=== PATIENT | male | born 1985 | race Two or more races ===

== ENCOUNTER 2025-02-22 14:31 | Emergency (ER) | payer SELFPAY ==
--- NOTE | 2025-02-22 14:33 | EKG_ITS ---
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
[2025-02-22 14:57] VITALS: BP 128/80; PULSE 64; RESP 16; TEMP 37.1; O2SAT 97; BMI 36.9
--- NOTE | 2025-02-22 15:22 | XR_ITS ---
Examination: PA lateral chest 2 views Technique one AP lateral chest 2 views Date and time: February 22, 2025 1532 hours INDICATIONS: Chest pain today. FINDINGS: Normal heart size. Lungs are clear. The osseous structures are intact. IMPRESSION: No active disease
--- NOTE | 2025-02-22 15:22 | PD.EDRME ---
Rapid Medical Screening Exam RME Arrival date/time: 02/22/25 14:31 39-year-old male presents Emergency Department for complaint of chest pain Chief Complaint: Chest Pain Vital signs: Vital Signs Temperature 98.7 F 02/22/25 14:57 Pulse Rate 64 02/22/25 14:57 Respiratory Rate 16 02/22/25 14:57 Blood Pressure 128/80 02/22/25 14:57 Pulse Oximetry (%) 97 02/22/25 14:57 Oxygen Delivery Method Room Air 02/22/25 14:57
[2025-02-22 15:35] LABS: Basophils # (Auto) 0.1 Thou/mm3 (0.0-0.2); Basophils % (Auto) 2 % (0-2.5); Eosinophils # (Auto) 0.1 Thou/mm3 (0.0-0.5); Eosinophils % (Auto) 2 % (0-10); Hematocrit 49.0 % (41.0-53.0); Hemoglobin 17.3 g/dL (13.5-16.0); Immature Granulocytes Auto 0.01 Thou/mm3 (0.00-0.00); Lymphocytes # (Auto) 1.3 Thou/mm3 (1.0-4.8); Lymphocytes % (Auto) 25 % (10-50); Mean Corpuscular HGB Conc 35.3 g/dl (31.0-37.0); Mean Corpuscular Hemoglobin 32.1 pg (25.0-35.0); Mean Corpuscular Volume 91 fL (80-100); Monocytes # (Auto) 0.6 Thou/mm3 (0.0-0.8); Monocytes % (Auto) 11 % (0-12); Neutrophils # (Auto) 3.2 Thou/mm3 (1.8-7.7); Neutrophils % (Auto) 61 % (37-80); Nucleated Red Blood Cell # 0.00 Thou/mm3 (0.00-0.00); Nucleated Red Blood Cell % 0 /100 WBC (0); Platelet Count 214 Thou/mm3 (140-440); RDW Standard Deviation 39.3 fL (35.1-43.9); Red Blood Count 5.39 Miln/mm3 (4.50-5.90); White Blood Count 5.3 Thou/mm3 (3.8-10.6)
[2025-02-22 16:05] LABS: Alanine Aminotransferase 94 U/L (10-49); Albumin, Serum 4.5 gm/dL (3.5-5.0); Albumin/Globulin Ratio 1.7 (1.2-2.2); Alkaline Phosphatase 113 U/L (46-116); Anion Gap 10 (7-16); Aspartate Amino Transferase 65 U/L (0-34); BUN/Creatinine Ratio 8 Ratio (12-20); Bilirubin,Total 0.9 mg/dL (0.3-1.2); Blood Urea Nitrogen 8 mg/dL (9-23); Calcium 9.6 mg/dL (8.3-10.6); Calcium (Corrected) 9.6 mg/dL (8.5-10.1); Carbon Dioxide 27.3 mMol/L (20.0-31.0); Chloride 105 mMol/L (98-107); Creatinine (Component) 1.0 mg/dL (0.6-1.3); Estimated Creatinine Clearance 123.1 mL/min (>60); Globulin 2.7 gm/dL (2.3-3.5); Glucose 103 mg/dL (74-106); Osmolality,Calculated 281 (275-295); Potassium 3.9 mMol/L (3.4-5.1); Sodium 142 mMol/L (136-145); Total Protein 7.2 gm/dL (5.7-8.2); Troponin I < 0.020 ng/mL (0.0-0.045); eGFR > 60 See Note
--- NOTE | 2025-02-22 17:19 | EDNOTE_ITS ---
<Statement entered by Adelaida Osorio MD - 03/13/25 06:07> As co-signing physician, I was present and available for consult prn. I concur with the plan and care as documented by the midlevel provider. ED Chest Pain RME/HPI General Chief Complaint: Chest Pain Stated Complaint: CHEST PAIN Time Seen by Provider: 02/22/25 16:42 Arrival date/time: 02/22/25 14:31 RME / HPI RME / HPI narrative: 39-year-old male presents Emergency Department for complaint of chest pain, substernal in location, duration for several days, described as burning-like sensation, radiating to the bilateral chest. Also complaining of nausea. Denies any vomiting no fever no cough no other complaints noted. No medication was taken prior to ER visit. Related Data Previous Rx's ?Medication ?Instructions ?Recorded ondansetron HCl 4 mg tablet 4 mg PO Q8H PRN nausea and 02/22/25 vomiting 5 days #20 tabs pantoprazole 40 mg tablet,delayed 40 mg PO BID #30 tab s 02/22/25 release (Protonix) Allergies Allergy/AdvReac Type Severity Reaction Status Date / Time NKA* Allergy Uncoded 10/21/10 14:47 Review of Systems Review of Systems Narrative Review of Systems: Review of system reviewed and within normal limits except mentioned in HPI ED Exam Narrative Physical exam: VITAL SIGNS: Reviewed. GENERAL APPEARANCE: Alert and interactive, follows commands, no acute distress, HEAD AND FACE: Non-traumatic. ENT: PERRL, pink conjunctivitis, eyelid no trauma, Mucous membrane moist. NECK: Supple, nontender, no nuchal rigidity. CHEST: No tenderness, no crepitus, no paradoxical movement, no retractions. LUNGS: Clear, well ventilated, symmetric, no rales, no wheezing, no ronchi, no stridor, good breath sounds bilaterally. HEART: Regular rate, regular rhythm, no murmur, no gallops. ABDOMEN: Soft, positive bowel sounds, nondistended, no guarding, nontender, no rebound, no masses, RECTAL: Deferred. GENITAL: Deferred. NEUROLOGICAL: Gross motor function intact sensory function intact, Appropriate for age. MUSCULOSKELETAL: low back nontender, full range of motion. EXTREMITIES: Nontender, full range of motion. SKIN: Color pink, dry, no rash, no lacerations, no abrasions, no contusions. LYMPHATICS: Deferred. Course Quality Measures none Orders Category Date Time Status EKG (ED ONLY) *Do not use* NOW Care 02/22/25 14:33 Completed EKG (ED Only) Stat Exams 02/22/25 14:33 Draft XR chest 2V Stat Exams 02/22/25 15:22 Completed CBC Stat Lab 02/22/25 15:28 Completed Comprehensive Metabolic Panel Stat Lab 02/22/25 15:28 Completed Troponin I Stat Lab 02/22/25 15:28 Completed Vital Signs Vital signs: Vital Signs Temperature 98.7 F 02/22/25 14:57 Pulse Rate 64 02/22/25 14:57 Respiratory Rate 16 02/22/25 14:57 Blood Pressure 128/80 02/22/25 14:57 Pulse Oximetry (%) 97 02/22/25 14:57 Oxygen Delivery Method Room Air 02/22/25 14:57 Chest Pain MDM Narrative MDM Narrative:: 39-year-old male presents Emergency Department for complaint of chest pain, substernal in location, duration for several days, described as burning-like sensation, radiating to the bilateral chest. Also complaining of nausea. Denies any vomiting no fever no cough no other complaints noted. No medication was taken prior to ER visit. Patient's laboratory workup today all came back unremarkable including normal troponin. Repeat troponin is not needed at this time, patient is having chest pain for several days now. I personally reviewed and interpreted the x-ray of this patient. There is no acute abnormalities found, no infiltrates no pneumothorax no hemothorax normal chest x-ray. Review of other structures was without significant abnormal findings also. I additionally reviewed the radiologist report and agree with the interpretation. EKG showed normal sinus rhythm, ventricular rate of 63 bpm, no ST segment ovation depression noted. Patient symptoms is probably secondary to GERD causing chest pain. Patient will be sent home on Protonix. Stable for discharge home. Patient data External records reviewed:: None Clinical information provided by:: patient Social determinants that could affect healthcare access:: none Patient has the following chronic illnesses:: Plan How is presenting disease/condition affected by chronic disease/condition?: no chronic disease Evaluation data The following diagnostics were reviewed and interpreted by me:: lab results, radiology exam(s) and EKG tracing(s) Lab and/or radiology exams considered but not ordered:: None Interpretation Summary: See results MDM Medications / Prescriptions Medications or Prescriptions considered but not ordered:: None Medication administrations:: None Consultations Consultation(s) initiated? (list below): No Diagnosis Chest Pain Differential Diagnosis: pneumothorax, atypical chest pain and chest pain Most likely diagnosis given after review of the tests above:: GERD causing chest pain Admission Indicated Admission indicated?: not indicated Admission Request Was there a request for admission?: No Disposition Plan Disposition Plan: Discharge Discharge Attestation Discharge Attestation: The patient was given an opportunity to ask questions and understood the discharge instructions. Discharge instructions specifically effects, indications for sooner follow up or return to the emergency department, and the expected course of current diagnosis. Patient condition: Stable Discharge Plan Plan Patient Disposition: HOME (Self Care) Discharge Disposition comment: stable Prescriptions/Referrals Prescriptions/Med Rec: New pantoprazole [Protonix] 40 mg tablet,delayed release (DR/EC) 40 mg PO BID Qty: 30 0RF ondansetron HCl 4 mg tablet 4 mg PO Q8H PRN (Reason: nausea and vomiting) 5 Days Qty: 20 0RF Referrals: Lalo Andrew MD [Primary Care Provider, Family Practice] - In 1 week Problem List Clinical Impression: Chest pain due to GERD Patient/Caregiver Discharge Instructions Discharge Activity: activity as tolerated Education Materials: GERD Lifestyle Changes, ED GERD (Adult) Additional Instructions: Thank you for the opportunity for serving you today. You are stable for discharged . You are advised to: Follow-up with your PCP in 1 to 2 days Return to ED for worsening of symptoms Increase oral fluids Take medication as prescribed Print Language: Mongolian Stand Alone Forms: Kourtney Award Info., Patient Portal Info Letter KARLIE/PRICE Supervising Physician KARLIE/PRICE Supervising Physician: MD Brenna
== END 2025-02-22 17:25 | disposition home or self-care (01) ==
PROVIDERS: Nurse Practitioner Primary Care; Emergency Provider Emergency Medicine; PCP Family Medicine
DX: K21.9 Gastro-esophageal reflux disease without esophagitis (principal)
CPT/HCPCS: 36415; 71046; 80053; 84484; 85025; 93005; 99283